=== PATIENT | female | born 1995 | race Asian ===

== ENCOUNTER 2016-10-18 15:07 | Emergency (ER) | payer OTHER ==
[~2016-10-18] VITALS: Ht 160 cm; Wt 59.9 kg
[2016-10-18 19:17] VITALS: BP 112/74
== END 2016-10-18 19:17 | disposition home or self-care (01) ==
LOC: ED 15:07
DX: R10.9 Unspecified abdominal pain (principal); R11.2 Nausea with vomiting, unspecified; R06.02 Shortness of breath

== ENCOUNTER 2017-03-05 20:41 | Emergency (ER) | payer OTHER ==
[2017-03-06 02:02] VITALS: BP 130/63
== END 2017-03-06 02:02 | disposition home or self-care (01) ==
LOC: ED 20:41
DX: S06.0X9A Concussion with loss of consciousness of unspecified duration, initial encounter (principal); W18.00XA Striking against unspecified object with subsequent fall, initial encounter; Y93.89 Activity, other specified; Y92.89 Other specified places as the place of occurrence of the external cause; Y99.8 Other external cause status
CPT/HCPCS: J8597

== ENCOUNTER 2019-02-09 20:11 | Emergency (ER) | payer OTHER ==
[~2019-02-09] VITALS: Ht 160 cm; Wt 58.5 kg
[2019-02-09 20:26] VITALS: Ht 160 cm; Wt 58.5 kg
[2019-02-10 01:42] VITALS: BP 124/71
== END 2019-02-10 01:42 | disposition home or self-care (01) ==
LOC: ED 20:11
DX: S76.011A Strain of muscle, fascia and tendon of right hip, initial encounter (principal); X58.XXXA Exposure to other specified factors, initial encounter; Y93.B9 Activity, other involving muscle strengthening exercises; Y92.89 Other specified places as the place of occurrence of the external cause; Y99.8 Other external cause status
CPT/HCPCS: J1885; Q0092

== ENCOUNTER 2020-02-13 15:58 | Emergency (ER) | payer OTHER ==
[~2020-02-13] VITALS: Ht 160 cm; Wt 55.3 kg
[2020-02-13 16:10] VITALS: Ht 160 cm; Wt 55.3 kg
[2020-02-13 17:13] VITALS: BP 112/71
== END 2020-02-13 17:13 | disposition home or self-care (01) ==
LOC: ED 15:58
DX: S00.511A Abrasion of lip, initial encounter (principal); W54.0XXA Bitten by dog, initial encounter; Y93.89 Activity, other specified; Y92.89 Other specified places as the place of occurrence of the external cause; Y99.8 Other external cause status
CPT/HCPCS: 90715